=== PATIENT | male | born 1985 | race Two or more races ===

== ENCOUNTER 2024-11-04 04:58 | Emergency (ER) | payer MEDICAID ==
[~2024-11-04] VITALS: Ht 172.7 cm; Wt 118.9 kg
[2024-11-04 05:33] VITALS: BP 157/103; PULSE 88; RESP 16; TEMP 98.4; O2SAT 98
--- NOTE | 2024-11-04 06:31 | ED.PDOC ---
History of Present Illness HPI Comments A 39 YEAR OLD MALE PRESENTS TO THE ED WITH CHIEF COMPLAINT OF EPIGASTRIC ABDOMINAL CRAMPING. PATIENT REPORTS THAT AFTER SEXUAL INTERCOURSE AT 5AM THIS MORNING, HE BEGUN TO EXPERIENCING A CRAMPING/TIGHTNESS TO HIS EPIGASTRIC REGION WITH NO PAIN ALONG WITH ASSOCIATED TREMBLING IN HIS BREATHING. PATIENT DENIES ANY ABDOMINAL PAIN, N/V/D, CHEST PAIN, OR SOB AND OTHER COMPLAINTS. NO OTHER SYMPTOMS REPORTED AT THIS TIME OF CARE. Chief Complaint: Body Pain Time Seen by MD: 06:29 Reviewed Notes: Nurses Notes, Medications, Allergies Allergies: Coded Allergies: Amoxicillin (Verified Allergy, Severe, 11/04/24) Ciprofloxacin (Verified Allergy, Severe, 11/04/24) Clavulanic Acid (Verified Allergy, Severe, 11/04/24) Penicillins (Verified Allergy, Severe, 11/04/24) Information Source: Patient Mode of Arrival: Ambulatory Severity: Mild Timing: Hours Duration: Since onset Prehospital treatment: None Medication Refill: For: Other (EPIGASTRIC PRESSURE ) Past Medical History PAST MEDICAL HISTORY: Denies Surgical History: Denies all surgeries Family History Family History: Reviewed,noncontributory to illness Social History Smoker: Non-Smoker Alcohol: Denies ETOH Use Drugs: Denies Drug Use Lives In: Home Constitutional: denies: chills, diaphoresis, fatigue, fever, malaise, sweats, weakness, others EENTM: denies: blurred vision, double vision, ear bleeding, ear discharge, ear drainage, ear pain, ear ringing, eye pain, eye redness, hearing loss, mouth pain, mouth swelling, nasal discharge, nose bleeding, nose congestion, nose pain, photophobia, tearing, throat pain, throat swelling, voice changes, others Respiratory: denies: cough, hemoptysis, orthopnea, SOB at rest, shortness of breath, SOB with excertion, stridor, wheezing, others Cardiovascular: denies: chest pain, dizzy spells, diaphoresis, Dyspnea on exertion, edema, irregular heart beat, left arm pain, lightheadedness, palpitations, PND, syncope, others Gastrointestinal: denies: abdomen distended, abdominal pain, blood streaked bowels, constipated, diarrhea, dysphagia, difficulty swallowing, hematemesis, melena, nausea, poor appetite, poor fluid intake, rectal bleeding, rectal pain, vomiting, others Genitourinary: denies: burning, dysuria, flank pain, frequency, hematuria, incontinence, penile discharge, penile sore, pain, testicle pain, testicle swelling, urgency, others Neurological: denies: dizziness, fainting, headache, left sided numbness, left sided weakness, numbness, paresthesia, pre-existing deficit, right sided numbness, right sided weakness, seizure, speech problems, tingling, tremors, weakness, others Musculoskeletal: reports: others (SPASM OF EPIGASTRIC REGION); denies: back pain, gout, joint pain, joint swelling, muscle pain, muscle stiffness, neck pain Integumetry: denies: bruises, change in color, change in hair/nails, dryness, laceration, lesions, lumps, rash, wounds, others Allergic/Immunocompromised: denies: Difficulty Healing, Frequent Infections, Hives, Itching, others Hematologic/Lymphatic: denies: anemia, blood clots, easy bleeding, easy brui sing, swollen glands, others Endocrine: denies: excessive hunger, excessive sweating, excessive thirst, ex cessive urination, flushing, intolerance to cold, intolerance to heat, unexplained weight gain, unexplained weight loss, others Psychiatric: denies: anxiety, bipolar disorder, depression, hopeless, panic disorder, schizophrenia, sleepless, suicidal, others All Other Systems: Reviewed and Negative Physical Exam General Appearance: No Apparent Distress, Obese HEENT: Normal ENT Inspection, PERRL/EOMI, Pharynx Normal, TMs Normal Neck: Full Range of Motion, Non-Tender, Normal, Normal Inspection Respiratory: Chest Non-Tender, Lungs Clear, No Accessory Muscle Use, No Respiratory Distress, Normal Breath Sounds Cardiovascular: No Edema, No JVD, No Murmur, No Gallop, Normal Peripheral Pulses, Regular Rate/Rhythm Breast Exam: Deferred Gastrointestinal: No Organomegaly, Non Tender, No Pulsatile Mass, Normal Bowel Sounds, Soft Genitalia: Deferred Pelvic: Deferred Rectal: Deferred Extremities: No calf tenderness, Normal capillary refill, Normal inspection, Normal range of motion, Non-tender, No pedal edema Musculoskeletal : Apperance: Normal Neurologic: Alert, unit secy II-XII nml as Tested, No Motor Deficits, Normal Affect, Normal Mood, No Sensory Deficits Cerebellar Function: Normal Reflexes: Normal Skin: Dry, Normal Color, Warm Peripheral Pulses: 2+ carotid (R), 2+ carotid (L) Lymphatic: No Adenopathy Was a procedure done? 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 COMPARISON: None FINDINGS: LIVER: Liver measures up to 19.5 cm. Fatty infiltration of the liver. GALLBLADDER: Gallbladder sludge. Negative Roberts's. No gallstones. COMMON BILE DUCT: Unremarkable as visualized. No stones. No dilation. Common bile duct measures 0.25 cm in diameter. PANCREAS: Unremarkable as visualized. RIGHT KIDNEY: Right kidney measures up to 11.1 cm. OTHER FINDINGS: . . IMPRESSION: 1. Fatty infiltration of the liver. 2. Gallbladder sludge. No convincing evidence of acute cholecystitis. ATED BY: GIBSON PARHAM MD DICTATED DATE/TIME: 11/04/24740 SIGNED BY: GIBSON PARHAM MD SIGNED DATE/TIME: 11/04/24740 CC: X-Ray, Labs, Meds, VS Comment EXTERNAL MEDICAL RECORDS REVIEWED: [NONE] INDEPENDENT HISTORIANS: [NONE] SOCIAL DETERMINANTS OF HEALTH: [NONE] LABS ORDERED: NONE REVIEWED AND INTERPRETED RESULTS: GALLBLADDER US IMAGING ORDERED: GALLBLADDER US TREATMENTS ORDERED: NONE PROCEDURES PERFORMED: NONE CRITICAL CARE TIME: NONE I HAVE DISCUSSED THE PATIENT WITH THE ATTENDING PHYSICIAN DR. BATEMAN AND HE AGREES WITH THE PATIENT'S PLAN OF CARE AND DISPOSITION. BASED ON HISTORY OF PRESENT ILLNESS, AND PHYSICAL EXAM, PATIENT WILL BE DISCHARGED HOME. DISCUSSED PLAN FOR DISCHARGE HOME WITH RX. MEDICATION WARNINGS GIVEN. SHARED DECISION MAKING: DISCUSSED WITH PATIENT THAT THEIR WORKUP WAS NORMAL. PATIENT INSTRUCTED TO FOLLOW UP WITH PRIMARY CARE PROVIDER IN 1-2 DAYS FOR RE- EVALUATION OF SYMPTOMS. PATIENT VERBALIZES UNDERSTANDING TO RETURN TO ED FOR NEW OR WORSENING SYMPTOMS OR IF FOLLOW UP WITH PCP CANNOT BE OBTAINED. PATIENT FEELS COMFORTABLE GOING HOME AT THIS TIME. ALL QUESTIONS ADDRESSED AT TIME OF DISCHARGE. Time of 1ST Reevaluation: 08:00 Reevaluation 1ST: Improved Patient Education/Counseling: Diagnosis, Treatment, Need For Follow Up Family Education/Counseling: Diagnosis, Treatment, No Family Present Medical Screening: No EMC Exist At This Time Departure 1 Departure Time of Disposition: 08:00 Impression: Primary Impression: Spasm of diaphragm Additional Impression: Gallbladder sludge Disposition: 01 HOME / SELF CARE / HOMELESS Condition: Stable Additional Instructions: FOLLOW-UP WITH PCP IN 1 TO 2 DAYS. TAKE MEDICATIONS PRESCRIBED. RETURN TO ED FOR ANY NEW OR WORSENING SYMPTOMS. Discharged With: Self Critical Care Note Critical Care Time?: No Stability Stability form required: No Heart Score Heart Score: Heart Score Response (Comments) Value History N/A 0 EKG N/A 0 Age N/A 0 Risk Factors N/A 0 Troponin N/A 0 Total 0 I personally scribed for TRIPP SAUNDERS ([email or web address]) on 11/04/24 at 06:31. Electronically submitted by Jose Manuel Cavazos ([email or web address]). I personally scribed for TRIPP SAUNDERS ([email or web address]) on 11/04/24 at 07:27. Electronically submitted by Jose Manuel Cavazos ([email or web address]). TRIPP SAUNDERS November 04, 2024 06:31
--- NOTE | 2024-11-04 07:44 | DVH ---
EXAM: US Abdomen Limited, Gallbladder CLINICAL INDICATION: epigastric pressure TECHNIQUE: Real-time ultrasound of the right upper quadrant with image documentation. COMPARISON: None FINDINGS: LIVER: Liver measures up to 19.5 cm. Fatty infiltration of the liver. GALLBLADDER: Gallbladder sludge. Negative Roberts's. No gallstones. COMMON BILE DUCT: Unremarkable as visualized. No stones. No dilation. Common bile duct measures 0.25 cm in diameter. PANCREAS: Unremarkable as visualized. RIGHT KIDNEY: Right kidney measures up to 11.1 cm. OTHER FINDINGS: . . IMPRESSION: 1. Fatty infiltration of the liver. 2. Gallbladder sludge. No convincing evidence of acute cholecystitis.
== END 2024-11-04 07:44 | disposition home or self-care (01) ==
LOC: ER 04:58
DX: K82.8 Other specified diseases of gallbladder (principal); R06.6 Hiccough; Z88.0 Allergy status to penicillin; Z88.1 Allergy status to other antibiotic agents; Z88.8 Allergy status to other drugs, medicaments and biological substances
CPT/HCPCS: 76705

== ENCOUNTER 2024-12-20 10:24 | Outpatient (CLI) | payer MEDICAID ==
[2024-12-20 10:35] LABS: Urine Bacteria None Seen /hpf (None Seen)
[2024-12-20 10:39] LABS: Basophils # (auto) 0.1 10 ^3/uL (0-0.2); Basophils % (auto) 0.8 % (0.0-2.0); Eosinophils # (auto) 0.2 10 ^3/uL (0-0.8); Eosinophils % (auto) 2.8 % (0.0-7.0); Hematocrit 47.5 % (41.0-53.0); Hemoglobin 16.2 g/dL (13.5-17.5); Lymphocytes # (auto) 2.3 10 ^3/uL (0.4-5.4); Lymphocytes % (auto) 32.7 % (10.0-50.0); Mean Corpuscular Hemoglobin 29.7 pg (28.0-32.0); Mean Corpuscular Hgb Conc. 34.2 g/dL (32.0-36.0); Mean Corpuscular Volume 86.9 fL (80.0-100.0); Monocytes # (auto) 0.7 10 ^3/uL (0-1.3); Monocytes % (auto) 9.2 % (0.0-12.0); Neutrophils # (auto) 3.9 10 ^3/uL (1.6-8.6); Neutrophils % (auto) 54.5 % (37.0-80.0); Nucleated Red Blood Cells % 0.1 %; Platelet Count (auto) 192 10^3/uL (140-450); Red Blood Cells 5.46 10^6/uL (4.5-5.90); Red Cell Distribution Width 14.3 % (11.8-14.3); White Blood Cell 7.1 10^3/uL (4.4-10.8)
[2024-12-20 10:49] LABS: Urine Blood Negative /uL (Negative); Urine Clarity Clear (Clear); Urine Color Light-Yellow (Yellow); Urine Mucus FEW (None Seen); Urine Protein, UAD Negative (Negative); Urine Specific Gravity 1.033 (1.001-1.035); Urine Squamous Epithelial Cell None Seen /hpf (<5); Urine Urobilinogen Normal (Negative)
[2024-12-20 10:59] LABS: Alanine Aminotransferase 38 U/L (7-40); Alkaline Phosphatase 73 U/L (46-116); Anion Gap 12 (5-15); Aspartate Aminotransferase 20 U/L (<34); BUN/Creatinine Ratio 14.6 (10.0-20.0); Blood Urea Nitrogen 13 mg/dL (9-23); Calcium 9.9 mg/dL (8.7-10.4); Carbon Dioxide 23 mmol/L (20-31); Potassium 4.1 mmol/L (3.5-5.1); Sodium 142 mmol/L (136-145); Total Protein 7.1 g/dL (5.7-8.2)
[2024-12-20 11:00] LABS: Albumin 4.6 g/dL (3.2-4.8); Bilirubin, Total 0.6 mg/dL (0.2-1.0); Cholesterol 177 mg/dL (< 200); Urine WBC < 1 /HPF (0-3)
[2024-12-20 11:09] LABS: Micro Albumin < 3.0 mg/L (<30.0)
[2024-12-20 11:10] LABS: Chloride 107 mmol/L (98-107); Glucose 193 mg/dL (74-106); HDL Cholesterol 33 mg/dL (40-59); LDL Cholesterol 120 mg/dL (< 100); Triglycerides 183 mg/dL (< 150)
== END 2024-12-20 17:00 | disposition home or self-care (01) ==
LOC: LAB 10:24
PROVIDERS: ATTEND Internal Medicine
DX: E11.22 Type 2 diabetes mellitus with diabetic chronic kidney disease (principal); N18.9 Chronic kidney disease, unspecified; E78.5 Hyperlipidemia, unspecified; E55.9 Vitamin D deficiency, unspecified; E53.8 Deficiency of other specified B group vitamins; Z12.11 Encounter for screening for malignant neoplasm of colon
CPT/HCPCS: 36415; 80053; 80061; 81001; 82043; 82274; 82306; 82607; 83036; 84443; 85025

== ENCOUNTER 2025-03-03 03:14 | Emergency (ER) | payer MEDICAID ==
[~2025-03-03] VITALS: Ht 172.7 cm; Wt 118.6 kg
--- NOTE | 2025-03-03 03:51 | ED.PDOC ---
HPI Comments 39 year old male presents to the ED with a chief complaint of chest pain onset 3 days. Patient has been experiencing intermittent chest pain for the past 3 days, currently rates pain 1/10. He states he recently had a cardiac ultrasound, was negative. He recently began Ozempic, is concerned it can be a side effect. Denies any PMHx as well as shortness of breath, nausea, vomiting, diarrhea, headache, dizziness, fever, chills. No other symptoms or modifying factors present at this time. Chief Complaint: Chest Pain Time Seen by MD: 03:40 Reviewed Notes: Medications, Allergies Allergies: Coded Allergies: Amoxicillin (Verified Allergy, Severe, 11/04/24) Ciprofloxacin (Verified Allergy, Severe, 11/04/24) Clavulanic Acid (Verified Allergy, Severe, 11/04/24) Penicillins (Verified Allergy, Severe, 11/04/24) Information Source: Patient Mode of Arrival: Ambulatory Severity: Moderate Timing: Days Duration: Intermittent Prehospital treatment: None Location: Chest (L) Radiation: No Radiation Quality: Sharp Onset: At Rest Cardiac Risk Factors: None PE Risk Factors: None History of: None Modifying Factors: Nothing Past Medical History PAST MEDICAL HISTORY: Denies Surgical History: Denies all surgeries Family History Family History: Reviewed,noncontributory to illness Social History Smoker: Non-Smoker Alcohol: Denies ETOH Use Drugs: Denies Drug Use Lives In: Home Constitutional: denies: chills, diaphoresis, fatigue, fever, malaise, sweats, weakness, others EENTM: denies: blurred vision, double vision, ear bleeding, ear discharge, ear drainage, ear pain, ear ringing, eye pain, eye redness, hearing loss, mouth pain, mouth swelling, nasal discharge, nose bleeding, nose congestion, nose pain, photophobia, tearing, throat pain, throat swelling, voice changes, others Respiratory: denies: cough, hemoptysis, orthopnea, SOB at rest, shortness of b reath, SOB with excertion, stridor, wheezing, others Cardiovascular: reports: chest pain; denies: dizzy spells, diaphoresis, Dyspnea on exertion, edema, irregular heart beat, left arm pain, lightheadedness, palpit ations, PND, syncope, others Gastrointestinal: denies: abdomen distended, abdominal pain, blood streaked b owels, constipated, diarrhea, dysphagia, difficulty swallowing, hematemesis, melena, nausea, poor appetite, poor fluid intake, rectal bleeding, rectal pain, vomiting, others Genitourinary: denies: burning, dysuria, flank pain, frequency, hematuria, incontinence, penile discharge, penile sore, pain, testicle pain, testicle swelling, urgency, others Neurological: denies: dizziness, fainting, headache, left sided numbness, left sided weakness, numbness, paresthesia, pre-existing deficit, right sided numbness, right sided weakness, seizure, speech problems, tingling, tremors, weakness, others Musculoskeletal: denies: back pain, gout, joint pain, joint swelling, muscle pain, muscle stiffness, neck pain, others Integumetry: denies: bruises, change in color, change in hair/nails, dryness, laceration, lesions, lumps, rash, wounds, others Allergic/Immunocompromised: denies: Difficulty Healing, Frequent Infections, Hives, Itching, others Hematologic/Lymphatic: denies: anemia, blood clots, easy bleeding, easy bruisi ng, swollen glands, others Endocrine: denies: excessive hunger, excessive sweating, excessive thirst, exce ssive urination, flushing, intolerance to cold, intolerance to heat, unexplained weight gain, unexplained weight loss, others Psychiatric: denies: anxiety, bipolar disorder, depression, hopeless, panic disorder, schizophrenia, sleepless, suicidal, others All Other Systems: Reviewed and Negative Physical Exam General Appearance: No Apparent Distress, Normal HEENT: Normal ENT Inspection, Pharynx Normal, TMs Normal Neck: Full Range of Motion, Non-Tender, Normal, Normal Inspection Respiratory: Chest Non-Tender, Lungs Clear, No Accessory Muscle Use, No Respiratory Distress, Normal Breath Sounds Cardiovascular: No Edema, No JVD, No Murmur, No Gallop, Normal Peripheral Pulses, Regular Rate/Rhythm Breast Exam: Deferred Gastrointestinal: No Organomegaly, Non Tender, No Pulsatile Mass, Normal Bowel Sounds, Soft Genitalia: Deferred Pelvic: Deferred Rectal: Deferred Extremities: No calf tenderness, Normal capillary refill, Normal inspection, Normal range of motion, Non-tender, No pedal edema Musculoskeletal : Apperance: Normal Neurologic: Alert, humanities professor II-XII nml as Tested, No Motor Deficits, Normal Affect, Normal Mood, No Sensory Deficits Cerebellar Function: Normal Reflexes: Normal Skin: Dry, Normal Color, Warm Lymphatic: No Adenopathy Was a procedure done? Was a procedure done?: No CP Differential Dx Differential Diagnosis: Angina, Heart Failure, UT, Pulmonary Embolus, V-Fib, V- Tach, Other X-Ray, Labs, Meds, VS Vital Signs Date Time Temp Pulse Resp B/P (MAP) Pulse Ox O2 Delivery O2 Flow Rate FiO2 03/03/25 03:21 78 03/03/25 03:18 97.5 81 18 145/80 97 97.5 Lab Test 03/03/25 04:31 03/03/25 03:30 Range/Units Troponin I High Sensitivity < 3 L < 3 L </=54 ng/L White Blood Count 11.6 H 4.4-10.8 10^3/uL Red Blood Count 6.11 H 4.5-5.90 10^6/uL Hemoglobin 18.1 H 13.5-17.5 g/dL Hematocrit 52.9 41.0-53.0 % Mean Corpuscular Volume 86.5 80.0-100.0 fL Mean Corpuscular Hemoglobin 29.7 28.0-32.0 pg Mean Corpuscular Hemoglobin Concent 34.3 32.0-36.0 g/dL Red Cell Distribution Width 12.7 11.8-14.3 % Platelet Count 238 140-450 10^3/uL Mean Platelet Volume 7.9 6.9-10.8 fL Neutrophils (%) (Auto) 58.6 37.0-80.0 % Lymphocytes (%) (Auto) 31.5 10.0-50.0 % Monocytes (%) (Auto) 6.6 0.0-12.0 % Eosinophils (%) (Auto) 2.6 0.0-7.0 % Basophils (%) (Auto) 0.7 0.0-2.0 % Neutrophils # (Auto) 6.8 1.6-8.6 10 ^3/uL Lymphocytes # (Auto) 3.6 0.4-5.4 10 ^3/uL Monocytes # (Auto) 0.8 0-1.3 10 ^3/uL Eosinophils # (Auto) 0.3 0-0.8 10 ^3/uL Basophils # (Auto) 0.1 0-0.2 10 ^3/uL Nucleated Red Blood Cells 0.1 % Sodium Level 140 136-145 mmol/L Potassium Level 3.5 3.5-5.1 mmol/L Chloride Level 104 98-107 mmol/L Carbon Dioxide Level 25 20-31 mmol/L Anion Gap 11 5-15 Blood Urea Nitrogen 18 9-23 mg/dL Creatinine 0.97 0.700-1.30 mg/dL Glomerular Filtration Rate Calc 103 >90 mL/min BUN/Creatinine Ratio 18.6 10.0-20.0 Serum Glucose 158 H 74-106 mg/dL Calcium Level 9.9 8.7-10.4 mg/dL Total Bilirubin 0.4 0.2-1.0 mg/dL Aspartate Amino Transferase (AST) 19 13-40 U/L Alanine Aminotransferase (ALT) 43 H 7-40 U/L Alkaline Phosphatase 84 46-116 U/L Total Protein 7.7 5.7-8.2 g/dL Albumin 5.0 H 3.2-4.8 g/dL Time of 1ST Reevaluation: 04:10 Reevaluation 1ST: Unchanged Patient Education/Counseling: Diagnosis, Treatment, Prognosis Family Education/Counseling: No Family Present SEPSIS Sepsis Screen Date sepsis recognized/suspect: Mar 03, 2025 Time Sepsis recognized/suspect: 319 Recent Procedure: No On Antibiotic Therapy: No Respiratory Rate >20: No Heart Rate >90: No Temp<36 C (96.8 F) or >38.3 C: No SBP <90 or MAP <65 mmHG: No New Acute Mental Status Change: No Is the patient on CPAP, BIPAP,: No Physician Orders Electrocardigram (03/03/25 03:15) Troponin-I Hs (03/03/25 06:15) Electrocardigram (03/03/25 04:15) Electrocardigram (03/03/25 06:15) Chest Xray 1 View (03/03/25 03:28) Vital Signs Date Time Temp Pulse Resp B/P (MAP) Pulse Ox O2 Delivery O2 Flow Rate FiO2 03/03/25 03:21 78 03/03/25 03:18 97.5 81 18 145/80 97 97.5 Laboratory Tests Test 03/03/25 03:30 White Blood Count 11.6 10^3/uL (4.4-10.8) H Departure 1 Departure Time of Disposition: 05:42 Impression: Primary Impression: Atypical chest pain Disposition: 01 HOME / SELF CARE / HOMELESS Condition: Stable Discharged With: Self Critical Care Note Critical Care Time?: No Stability Stability form required: No Heart Score Heart Score: Heart Score Response (Comments) Value History Slightly Suspicious 0 EKG Normal 0 Age <45 0 Risk Factors No known risk factors 0 Troponin Normal limit 0 Total 0 I personally scribed for ALLAN DENISE MD ([email or web address]) on 03/03/25 at 03:51. Electronically submitted by Nicolle Ortiz ([email or web address]). ALLAN DENISE MD Mar 03, 2025 03:51
[2025-03-03 04:02] LABS: Alkaline Phosphatase 84 U/L (46-116); Anion Gap 11 (5-15); BUN/Creatinine Ratio 18.6 (10.0-20.0); Blood Urea Nitrogen 18 mg/dL (9-23); Calcium 9.9 mg/dL (8.7-10.4); Carbon Dioxide 25 mmol/L (20-31); Chloride 104 mmol/L (98-107); Potassium 3.5 mmol/L (3.5-5.1); Sodium 140 mmol/L (136-145); Total Protein 7.7 g/dL (5.7-8.2)
--- NOTE | 2025-03-03 04:02 | DVH ---
CHEST RADIOGRAPH Indication: chest pain Technique: 1 view Comparison: None FINDINGS: Lines and Tubes: None Lungs/Pleura: No focal consolidation, pleural effusion or pneumothorax. Cardiomediastinum: Unremarkable. Other: No acute osseous abnormality. IMPRESSION: 1. No acute cardiopulmonary abnormality.
[2025-03-03 04:03] LABS: Bilirubin, Total 0.4 mg/dL (0.2-1.0)
[2025-03-03 04:07] LABS: Hematocrit 52.9 % (41.0-53.0); Hemoglobin 18.1 g/dL (13.5-17.5); Mean Corpuscular Hemoglobin 29.7 pg (28.0-32.0); Mean Corpuscular Volume 86.5 fL (80.0-100.0); Nucleated Red Blood Cells % 0.1 %
[2025-03-03 04:17] LABS: Alanine Aminotransferase 43 U/L (7-40); Albumin 5.0 g/dL (3.2-4.8); Glucose 158 mg/dL (74-106)
[2025-03-03 07:48] VITALS: BP 140/92; PULSE 86; RESP 16; TEMP 97.4; O2SAT 97
--- NOTE | 2025-03-03 10:50 | ECG ---
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
== END 2025-03-03 07:56 | disposition home or self-care (01) ==
LOC: ER 03:14
DX: R07.89 Other chest pain (principal); Z88.1 Allergy status to other antibiotic agents; Z88.0 Allergy status to penicillin
CPT/HCPCS: 36415; 71045; 80053; 84484; 85025; 93005